=== PATIENT | female | born 1955 | race Caucasian/White ===

== ENCOUNTER 2018-09-01 14:17 | Inpatient (IN) ==
[2018-09-01] MEDS ORDERED: NS 1,000 ML IV ONE ×3 (15:02→19:20)
[2018-09-01] MEDS ORDERED: REGLAN IV ONE (15:22)
[2018-09-01] MEDS ORDERED: SODIUM CHLORIDE 0.9% INJ ONE ×2 (15:22→19:20)
[2018-09-01] MEDS ORDERED: PROTONIX IV ONE (15:22)
[2018-09-01 15:34] LABS: BASO# 0.03 X1000 (0.0-0.2); BASO% 0.4 % (0.0-0.8); EOS# 0.24 X1000 (0.0-0.7); EOS% 3.3 % (0.0-10.0); HEMATOCRIT 38.4 % (37.0-47.0); HEMOGLOBIN 12.4 g/dL (12.0-16.0); LYMPH# 2.35 X1000 (1.2-3.4); MCH 28.6 PG (27-31); MCHC 32.3 g/dL (33-37); MCV 88.5 FL (81-99); MONO# 0.72 X1000 (0.11-0.59); MONO% 9.8 % (1.7-9.3); MPV 10.1 FL (7.4-10.4); NEUT# 4.01 X1000 (1.4-6.5); NEUT% 54.5 % (42.2-75.2); PLT 223 X1000 (130-400); RBC 4.34 XMIL (4.2-5.4); RDW 13.5 % (11.5-14.5); WBC 7.35 X1000 (4.8-10.8)
[2018-09-01] MEDS ORDERED: NS 1,000 ML ONE (15:39)
[2018-09-01 15:43] LABS: ALB/GLOB RATIO 1.7; ALBUMIN 3.8 g/dL (3.5-5.0); CALCIUM 8.7 mg/dL (8.8-10.2); POTASSIUM 3.3 mmol/L (3.5-5.1); TOTAL BILIRUBIN 0.56 mg/dL (0.20-1.00); TOTAL PROTEIN 6.1 g/dL (6.3-8.3)
[2018-09-01 15:49] LABS: INR 0.92; PROTIME 13.1 Seconds (11.0-16.0)
[2018-09-01 15:50] LABS: PTT 26.6 Seconds (22.3-41.8)
--- NOTE | 2018-09-01 15:51 | EKG Report ---
Test Performed on : 09/01/2018 2:30:00 PM Test Reason : DIZZINESS Blood Pressure : / mmHG Vent. Rate : 104 BPM Atrial Rate : 104 BPM P-R Int : 146 ms QRS Dur : 100 ms QT Int : 358 ms P-R-T Axes : 041 019 010 degrees QTc Int : 470 ms Sinus tachycardia. Incomplete right bundle branch block ST & T wave abnormality, consider anterior ischemia Abnormal ECG No previous ECGs available Unconfirmed Result
--- NOTE | 2018-09-01 17:18 | PROVIDER DOCUMENTATION ---
This chart was entered by Allen Azar Scribe, acting as scribe for Marni Bonilla MD. HPI-Abdominal Pain/GI Problem - General Chief Complaint: GI Bleed Stated Complaint: dizziness, gi bleed Time Seen by Provider: 09/01/18 14:52 Allergies/Adverse Reactions: Patient Allergies Allergy/AdvReac Type Severity Reaction Status Date / Time Corticosteroids Allergy "MAKES ME Verified 09/01/18 14:56 (Glucocorticoids) RED AND HOT" Home Medications: Home Medication List Medication Instructions Recorded Confirmed Last Taken Type ATORVAstatin [Lipitor] 10 mg PO QHS 09/01/18 09/01/18 08/31/18 History Buprenorphine 1 patch TD DIRECTED 09/01/18 09/01/18 08/26/18 History Cyclobenzaprine [Flexeril] 10 mg PO BID 09/01/18 09/01/18 09/01/18 History Levothyroxine [Synthroid] 125 mcg PO DAILY 09/01/18 09/01/18 09/01/18 History Lisinopril/Hydrochlorothiazide 1 tab PO DAILY 09/01/18 09/01/18 09/01/18 History [Lisinopril-Hctz 20-12.5 mg Tab] Metformin HCl 500 mg PO BID 09/01/18 09/01/18 09/01/18 History Naldemedine Tosylate [Symproic] 1 tab PO DAILY 09/01/18 09/01/18 09/01/18 History Sertraline [Zoloft] 100 mg PO DAILY 09/01/18 09/01/18 09/01/18 History - History of Present Illness-ABD Nature of Presenting Problems: 62 yof presents with cc of GI Bleeding. Pt reports Saturday had a blood stools and the next BM was coffee grounds. Pt has had nausea, abd pain lower quads and vomiting. Denies blood in emesis. Reports today became dizzy and passed out. Pt is on a 20mg buprenorphine patch for pain for her back pain where she had back sx. Pt his hypotensive on exam BP was 85/55. Abdominal Pain Onset Location: reports: RLQ, LLQ Quality of Pain: reports: aching Severity in ED: reports: moderate Onset/Duration: reports: 2 days ago Timing: reports: still present Review of Systems - Adult - REVIEW OF SYSTEMS - ADULT Constitutional: denies: chills, fever, fatique Eyes: reports: no symptoms reported Ears, Nose, Mouth & Throat: denies: ear pain, sinus problem, throat pain Cardiovascular: reports: no symptoms reported Respiratory: denies: cough, shortness of breath, wheezing Gastrointestinal: reports: abdominal pain, nausea, rectal bleeding, vomiting. denies: hematemesis, constipation, difficulty swallowing, frequent heartburn Genitourinary: denies: dysuria, frequent UTI's, urgency Musculoskeletal: denies: bone pain, joint pain, neck pain Integumentary: denies: hives, mole changes, skin thickening Neurological: reports: dizziness/vertigo. denies: headache/migraines, numbness , paresthesia, seizure, slurred speech, tremors Psychiatric: reports: no symptoms reported Endocrine: reports: no symptoms reported Hematologic/Lymphatic: reports: no symptoms reported Allergic/Immunologic: reports: no symptoms reported All Other Systems: Reviewed and Negative Past History - Adult - PAST MEDICAL HISTORY-ADULT Review of Records: reports: Nursing Assessment Review, Medications Reviewed Major Childhood Illnesses: reports: denies history Cardiovascular: reports: HTN, hyperlipidemia Endocrine/Immune: reports: Diabetes - PRIOR SURGERIES/PROCEDURES Surgical/Procedure History: reports: appendectomy, cholecystectomy, hysterectomy , tonsillectomy, back/neck - IMMUNIZATION STATUS Childhood Immunizations: See Nurse Assessment Flu Vaccine: See Nurse Assessment - SOCIAL HISTORY Smoking: denies Substance Use: none/never Physical Exam-General - PHYSICAL EXAM-ADULT Initial Vital Signs Reviewed: Yes - CONSTITUTIONAL General Appearance: appears well, alert, no apparent distress - EYES Eyes: PERRL/EOMI - HEAD, EARS, NOSE, MOUTH & THROAT HENMT: moist mucous membranes - NECK Neck: non-tender, full range of motion, supple, normal inspection - RESPIRATORY Respiratory: chest non-tender, lungs clear, normal breath sounds, no pleuratic chest pain, no respiratory distress - CARDIOVASCULAR Cardiovascular: no edema, no gallop, no JVD, tachycardia - GASTROINTESTINAL (ABDOMEN) Abdominal Exam: soft, no organomegaly, no pulsatile mass, tenderness (mild ttp llq rlq) - GENITOURINARY Rectal Exam: blood streaked stool - MUSCULOSKELETAL Back Exam: normal inspection Extremity: normal range of motion, non-tender, normal gait - SKIN Integumentary: normal color, normal turgor, warm/dry - NEUROLOGIC Neurologic: grossly normal - PSYCHIATRIC Psych/Mental Status: normal mood/affect, normal thought content, normal thought process, oriented x 3 Progress - PLAN OF CARE/RESULTS Progress/Plan/Lab Results: Vital Signs - 8 hr 09/01/18 14:29 09/01/18 14:30 09/01/18 14:31 Temperature Pulse Rate 106 H 107 H 104 H Respiratory Rate 18 20 16 Blood Pressure 78/57 O2 Sat by Pulse Oximetry 96 94 L 94 L 09/01/18 14:32 09/01/18 14:38 09/01/18 14:40 Temperature 97 F L Pulse Rate 107 H 108 H 106 H Respiratory Rate 23 16 14 Blood Pressure 83/52 83/57 O2 Sat by Pulse Oximetry 93 L 99 97 09/01/18 14:41 Temperature Pulse Rate 106 H Respiratory Rate 17 Blood Pressure 85/55 O2 Sat by Pulse Oximetry 98 Laboratory Tests 09/01/18 09/01/18 09/01/18 14:30 14:30 14:30 WBC 7.35 RBC 4.34 Hgb 12.4 Hct 38.4 MCV 88.5 MCH 28.6 MCHC 32.3 L RDW Std Deviation 13.5 Plt Count 223 MPV 10.1 Immature Gran % (Auto) 0.0 Neut % (Auto) 54.5 Lymph % (Auto) 32.0 [place] % (Auto) 9.8 H Eos % (Auto) 3.3 Baso % (Auto) 0.4 Immature Gran # (Auto) 0.00 Neut # (Auto) 4.01 Lymph # (Auto) 2.35 [place] # (Auto) 0.72 H Eos # (Auto) 0.24 Baso # (Auto) 0.03 PT 13.1 INR 0.92 PTT (Actin FS) 26.6 Sodium 136 Potassium 3.3 L Chloride 99 Carbon Dioxide 25 Anion Gap 12 BUN 29 H Creatinine 1.0 H Estimated GFR/1.73 m2 56 BUN/Creatinine Ratio 29 Glucose 125 H Calculated Osmolality 279 Calcium 8.7 L Total Bilirubin 0.56 AST 27 ALT 33 Alkaline Phosphatase 56 Total Protein 6.1 L Albumin 3.8 Globulin 2.3 Albumin/Globulin Ratio 1.7 Blood Type Antibody Screen 09/01/18 14:30 WBC RBC Hgb Hct MCV MCH MCHC RDW Std Deviation Plt Count MPV Immature Gran % (Auto) Neut % (Auto) Lymph % (Auto) [place] % (Auto) Eos % (Auto) Baso % (Auto) Immature Gran # (Auto) Neut # (Auto) Lymph # (Auto) [place] # (Auto) Eos # (Auto) Baso # (Auto) PT INR PTT (Actin FS) Sodium Potassium Chloride Carbon Dioxide Anion Gap BUN Creatinine Estimated GFR/1.73 m2 BUN/Creatinine Ratio Glucose Calculated Osmolality Calcium Total Bilirubin AST ALT Alkaline Phosphatase Total Protein Albumin Globulin Albumin/Globulin Ratio Blood Type A POSITIVE Antibody Screen NEGATIVE Result Diagrams: 09/01/18 14:30 09/01/18 14:30 - CONSULTS/PCP/HOSPITALIST Notification #1 *Consult/PCP/Hospitalist*: Dr. Knapp Time Discussed: 16:39 Consult Disposition: Admit Departure - Departure Date of Disposition Decision: 09/01/18 Time of Disposition Decision: 16:25 DIAGNOSIS: GI bleed Disposition: ADMITTED INPATIENT 09 Certified Medical Emergency: Emergent Condition: Stable Referrals and Follow-Ups: Tae Kolb MD [Primary Care Provider] - - Critical Care Note This patient required my direct & personal management of CC.: No Attestation - Physician/ GREY Attestation Patient care was provided by Advanced Practice Provider:: No The physician spent face to face time with patient:: Yes Advanced Practice Provider documentation review:: Supervising physician onsite and consulted in the evaluation and care of this patient. The physician did have a face to face encounter with the patient. This chart was documented by the indicated scribe, (Allen Azar Scribe) and accurately reflects the services I performed and decisions made by me, Marni Bonilla MD, as attested by the provider's signature.
--- NOTE | 2018-09-01 18:16 | Diag Imaging Result Doc PS360 ---
EXAM: CT HEAD W/O CONTRAST HISTORY: dizziness with syncope per report CPR@home TECHNIQUE: CT head without contrast COMPARISON: None. FINDINGS: No parenchymal hemorrhage. No epidural or subdural hematoma. No subarachnoid hemorrhage. There are mild chronic microvascular ischemic changes. No mass identified on this noncontrasted exam. No hydrocephalus. No sinus opacification. IMPRESSION: No hemorrhage. This exam was performed using automated exposure control, adjustment of mA or kV according to patient size, and/or use of iterative reconstruction technique. Electronically signed by Renzo Bauer 09/01/2018 6:14 PM
--- NOTE | 2018-09-01 18:24 | Diag Imaging Result Doc PS360 ---
EXAM: CT THORAX/ABD/PELVIS W/O CON HISTORY: lower gi bleed vs diverticulitis r/o pna TECHNIQUE: 1. CT chest without contrast 2. CT abdomen and pelvis without contrast COMPARISON: No plain films obtained. FINDINGS: Chest: No pleural effusions. Trace pericardial fluid. Heart is borderline mildly enlarged. No thoracic aortic aneurysm. No enlarged lymph nodes. There are no infiltrates. No bronchiectasis. No lung mass identified. No pneumothorax. Abdomen and pelvis: Fatty infiltration of the liver. The gallbladder has been removed. No focal splenic normality. There is fatty infiltration of the pancreas. Normal adrenal glands. No renal stones. No hydronephrosis. Normal aorta. No bowel obstruction. No abscess. There is a Florez catheter in the urinary bladder. The uterus has been removed. No pelvic mass. IMPRESSION: Chest: Mildly prominent heart Abdomen and pelvis: 1. Fatty liver 2. Cholecystectomy 3. Hysterectomy This exam was performed using automated exposure control, adjustment of mA or kV according to patient size, and/or use of iterative reconstruction technique. Electronically signed by Renzo Bauer 09/01/2018 6:22 PM
--- NOTE | 2018-09-01 18:43 | HISTORY AND PHYSICAL ---
PRIMARY CARE PROVIDER: Dr. Tae Kolb CHIEF COMPLAINT: Bleeding from rectum and dizziness. HISTORY OF PRESENT ILLNESS: Ms. Tim is a 62-year-old female, who reports a past medical history of hypertension, hyperlipidemia, diabetes mellitus type 2, chronic back pain. She follows Dr. Joseph Bower with the [facility] in [place]. She reported Saturday she had an episode of blood dripping from her bottom that had to be cleaned out of the carpet, then a 2nd episode of what appeared to look like coffee grounds came from her bottom. Those were the only 2 episodes she had. She has been having dizziness since that time. No appetite. She reported she was at the kitchen table trying to eat her breakfast when her vision went blurry. She felt dizzy, went to go get O2 monitor and blood pressure cuff, and she had gotten up and tried to make her way to the bedroom. She fell at the doorway. He states her eyes rolled back in her head. She started gurgling. He did a few rounds of CPR. She then came to, felt nauseous, vomited up her toast. He had already called EMS. She still complains of some dizziness. On arrival to the ED, initial blood pressures were anywhere from 60s to 80s over 50s. She was given I believe 2 to 3 L of IV fluids. Apparently Dr. Bonilla did a rectal exam, and there was blood on the glove. We did not check any Hemoccult stool. Her hemoglobin and hematocrit are currently stable at 12 and 38. She was slightly hypokalemic with a mild kidney injury with a BUN of 29 and creatinine of 1.0. We will go ahead and insert a Florez catheter, place her in the ICU. We will do a CT scan of the head, chest, abdomen, and pelvis. Given her dizziness, CPR, and vomiting episode, as well as rule out any infections, we will keep her sipping on clear liquids. Continue proton pump inhibitor. Monitor her hemoglobin and hematocrit q.6 h. Notify Gastroenterology. PAST MEDICAL HISTORY: 1. Hypertension. 2. Hyperlipidemia. 3. Diabetes mellitus, type 2. 4. Chronic back pain. She follows the Pain [facility] in [place] at [facility] with Dr. Joseph Bower. PAST SURGICAL HISTORY: 1. Appendectomy. 2. Cholecystectomy. 3. Hysterectomy. 4. Tonsillectomy. 5. Back surgery 4 years ago for which she wears a pain patch. FAMILY HISTORY: Father with recent CVA. Mother with [place], who is . She also was diagnosed with bone cancer shortly before her [place]. A brother with diabetes or borderline diabetes. SOCIAL HISTORY: She lives in [place]. She is . She has supportive and brother at bedside. No alcohol, tobacco, or illicit drug use. ALLERGIES: Corticosteroids "makes her hot and red." HOME MEDICATIONS: 1. Lipitor 10 mg p.o. at bedtime. 2. Buprenorphine 1 patch TD as directed. 3. Flexeril 10 mg p.o. b.i.d. 4. Synthroid 125 mcg p.o. daily. 5. Lisinopril/hydrochlorothiazide 20/12.5 mg tablet 1 tablet p.o. daily. 6. Metformin 500 mg p.o. b.i.d. 7. Symproic 1 tablet p.o. daily. 8. Zoloft 100 mg p.o. daily. PHYSICAL EXAMINATION: VITAL SIGNS: Temperature is 97 degrees, heart rate 91, respirations 16, blood pressure 109/73, O2 is 100% on room air. GENERAL: Ms. Tmi is a pleasant 62-year-old female, who is lying on the stretcher in no acute distress. HEENT: Atraumatic, normocephalic. YUNIER. NECK: Supple. Trachea midline. CARDIOVASCULAR: S1, S2 appreciated. No murmurs, gallops, or rubs noted. RESPIRATORY: Lung sounds clear to excursion. Nonlabored breathing. GASTROINTESTINAL: Soft, nontender, nondistended. Positive bowel sounds 4 quadrants. EXTREMITIES: Bilateral lower extremities negative for edema. Bilateral pedal pulses are palpable. No clubbing. SKIN: No cyanosis noted. NEUROLOGIC: Patient is alert and oriented x4. Follows commands. Moves all extremities. DIAGNOSTIC DATA: EKG shows sinus tachycardia with incomplete right bundle branch block. CBC: White count 7, hemoglobin 12, hematocrit 38, platelet count is 223,000. PT 13.1, INR 0.92. Chemistry: Sodium 136, potassium 3.3, BUN 29, creatinine 1.0, blood glucose 125. Currently pending CK profile. Pending head, chest, abdomen and pelvis CT. ASSESSMENT AND PLAN: 1. Probable lower gastrointestinal (GI) bleed. Per patient report, she has had 2 episodes of bloody diarrhea on Saturday, and per family report in the room, she was checked by the ED physician. On rectal exam, there was blood on his glove; however, we did not get that in report. We will go ahead and check an occult stool. We will keep her sipping on clear liquids. Monitor her in the ICU. Serial hemoglobin and hematocrit. Continue with PPI. She has been typed and screened if needed transfusion. 2. Syncope, possibly secondary to lower gastrointestinal (GI) bleed and/or pain medications. We will hold any pain medications for now. See #1. The patient is now normotensive. We will monitor in the ICU closely for the possibility of receiving blood products or needing to go on pressors, as well as check orthostatics. We will check an echocardiogram. 3. Diabetes mellitus, type 2. We will continue with patterned blood sugars and sliding scale insulin. 4. Hypertension. The patient has been hypotensive. We will hold any blood pressure medications. 5. Hyperlipidemia. 6. Back pain. Patient is followed by the [facility] with Dr. Joseph Bower. Again we will hold any pain medications that might lower her blood pressure. Further recommendation to follow physician evaluation, laboratory data, and diagnostic data. Dictated by MARY Shannon for Lam Knapp MD cc: Lam Knapp MD MTD
[2018-09-01] MEDS ORDERED: ZOFRAN IV PRN (19:20)
[2018-09-01] MEDS ORDERED: POTASSIUM CHLORIDE 20 MEQ/SWI 20 MEQ/100 ML IVPB IV ONE (19:20)
[2018-09-01] MEDS: HUMALOG SUBQ SCH (21:00)
[2018-09-01 22:01] LABS: HEMOGLOBIN 10.6 g/dL (12.0-16.0)
[2018-09-01] MEDS: LIPITOR PO SCH (22:30)
--- NOTE | 2018-09-01 23:26 | HISTORY AND PHYSICAL ---
HISTORY OF PRESENT ILLNESS: Briefly, Ms. Tim refers that since Saturday, she was having abdominal cramps, and then subsequently, the following day, she had a massive bowel movement which was dark red. The 2nd episode was coffee ground, according to the at any case, she said she felt kind of weak throughout the weekend, but Saturday she was fairly stable. This morning, she was playing on her iPad, and she felt dizzy. She tried to get up to go to her room to lay down, and that is when she just passed out and the had to grab her before she hit the floor. She said she did not really know much what happened, but she recovered her mentation immediately. According to the , it took maybe about 40 seconds, but when she got her back, her blood pressure was about 40/30, and he could not get any pulse. Of note, Ms. Tim is on a lot of home opioid medications, including buprenorphine, cyclobenzaprine, sertraline, and also on lisinopril with HCTZ. Upon presenting to the emergency department, the patient was evaluated. She had a blood pressure of 78/57, and multiple charting revealed blood pressure of 69/59. The patient has been given about 2 L of IV fluids. PHYSICAL EXAMINATION: GENERAL: Currently, on her physical exam, she looks dry, but she is alert and oriented. There is no neurological deficit. ABDOMEN: Soft, nontender. Bowel sounds were present. EXTREMITIES: No pedal edema. CHEST: Clear to auscultation. CARDIOVASCULAR: Slightly tachycardic, but no murmurs, no rubs, no gallops. LABORATORY STUDIES: I reviewed her lab wok as well. Hemoglobin and hematocrit is 12.4, but this is the first reading. We do not have any other labs on her previously. ASSESSMENT: 1. Suspected gastrointestinal bleed. We will start the patient on a proton pump inhibitor drip, and have GI to evaluate her in the morning. 2. Syncope, likely a combination of volume depletion, as well as drug-induced. The patient's pain patch has been removed. We have also withheld her blood pressure medications. We will hydrate her accordingly. 3. Clinical volume depletion. Will continue with IV fluids. Blood pressure has been fairly normalized. 4. Hypothyroidism. Will continue with the thyroid medications. 5. Diabetes mellitus. We will continue with medication. 6. Renal failure, presumably acute, due to volume depletion. We will continue with adequate IV fluids, and repeat the labs for tomorrow. PLAN: 1. In general, I think Ms. Tim seems to be getting better. We will, however, keep her in the ICU and trend her hemoglobin and hematocrit, group and crossmatch her, and transfuse if necessary. We are going to withhold her blood pressure medication, and her buprenorphine has also been discontinued. 2. We will re-evaluate her in the morning, and continue with her PPI. Instead of drip, we will do 40 b.i.d. 3. Please refer to the details of the history and physical in the chart done by Ms. Maricarmen Mendoza NP. cc: Lam Knapp MD
[2018-09-02 01:31] LABS: HEMATOCRIT 32.9 % (37.0-47.0); HEMOGLOBIN 10.5 g/dL (12.0-16.0)
[2018-09-02] MEDS: SYNTHROID PO SCH (06:21)
[2018-09-02] MEDS: PROTONIX IV SCH ×2 (06:21→19:05)
--- NOTE | 2018-09-02 06:33 | Diag Imaging Result Doc PS360 ---
EXAM: CHEST-PORTABLE HISTORY: follow up TECHNIQUE: Portable chest single view COMPARISON: None. FINDINGS: Poor inspiratory effort. The heart is borderline mildly prominent. The vessels are not distended. There are no infiltrates. No effusion identified. IMPRESSION: Borderline mildly prominent heart. Electronically signed by Renzo Bauer 09/02/2018 6:30 AM
[2018-09-02 06:59] LABS: BASO# 0.02 X1000 (0.0-0.2); BASO% 0.4 % (0.0-0.8); EOS# 0.16 X1000 (0.0-0.7); EOS% 3.5 % (0.0-10.0); HEMATOCRIT 34.6 % (37.0-47.0); HEMOGLOBIN 11.1 g/dL (12.0-16.0); LYMPH# 1.51 X1000 (1.2-3.4); LYMPH% 32.6 % (20.5-51.1); MCH 28.8 PG (27-31); MCHC 32.1 g/dL (33-37); MCV 89.6 FL (81-99); MONO# 0.51 X1000 (0.11-0.59); MPV 9.6 FL (7.4-10.4); NEUT# 2.43 X1000 (1.4-6.5); NEUT% 52.5 % (42.2-75.2); PLT 178 X1000 (130-400); RBC 3.86 XMIL (4.2-5.4); RDW 13.3 % (11.5-14.5); WBC 4.63 X1000 (4.8-10.8)
[2018-09-02] MEDS: HUMALOG SUBQ SCH ×4 (06:59→23:39)
[2018-09-02 07:18] LABS: AGAP 10; BUN 19 mg/dL (8-22); CALCIUM 8.4 mg/dL (8.8-10.2); CHLORIDE 107 mmol/L (98-107); COSMO 283; CREATININE 0.7 mg/dL (0.5-0.9); ESTIMATED GFR > 60; GLUCOSE 86 mg/dL (70-104); MAGNESIUM 1.9 mg/dL (1.5-2.7); POTASSIUM 3.6 mmol/L (3.5-5.1); SODIUM 141 mmol/L (136-145); TCO2 24 mmol/L (25-35)
[2018-09-02 09:20] LABS: URINE SOURCE CATH
[2018-09-02 09:23] LABS: BILIRUBIN URINE NEGATIVE (NEGATIVE); BLOOD URINE SMALL (NEGATIVE); COLOR YELLOW; GLUCOSE URINE NEGATIVE (NEGATIVE); KETONE URINE 20 mg/dL (NEGATIVE); LEUKOCYTES URINE NEGATIVE (NEGATIVE); NITRITE URINE NEGATIVE (NEGATIVE); PH URINE 5.5; PROTEIN URINE NEGATIVE (NEGATIVE); SP GRAVITY URINE 1.009; TURBIDITY URINE CLEAR (CLEAR); UROBILINOGEN URINE NORMAL (NORMAL)
[2018-09-02 09:24] LABS: UR EPITHELIAL CELLS <10 /HPF (<10); URINE BACTERIA NEGATIVE /HPF; URINE RBC <10 /HPF (<10); URINE WBC <10 /HPF (<10)
[2018-09-02] MEDS ORDERED: NS 1,000 ML IV SCH (10:15)
--- NOTE | 2018-09-02 10:33 | PROGRESS NOTE ---
DATE: 09/02/2018 SUBJECTIVE: This morning Ms. Tim refers to be doing a lot better, has not had any more melena stools, and does not feel any more dizzy. Has not had any syncopal episode. OBJECTIVE: Vital signs: Blood pressure is 134/95, pulse is 91, respiration is 18, temperature 97.8 degrees. General exam: Ms. Tim is a 62-year-old, female. She is in bed. She is not in any cardiopulmonary distress. HEENT: Mucosa is pink and moist. Anicteric. Acyanotic. Neck: Supple. Chest: Clear to auscultation. There was no crepitations, no rhonchi. Cardiovascular: Regular rate and rhythm. No murmurs, no rubs, no gallops. Abdomen: Soft. Minimally tender, especially to the lower abdomen. Extremities: No pedal edema. There was a Florez catheter in place. DRIVER LICENSE REVIEWING OFFICER: Patient is awake, alert, oriented. There is no focal neurological deficit. LABORATORY DATA: WBC is down to 4.63, hemoglobin is 11.1, platelet count of 178. Chemistry is also reviewed. Creatinine has normalized to 0.7. BUN is also down to 19. TSH is normal. PATIENT MEDICATIONS: Have all been reviewed. ASSESSMENT: 1. Suspected gastrointestinal bleed. Hemoglobin and hematocrit is fairly stable. The patient has not been transfused. We will continue with the proton pump inhibitor. She has been evaluated by Gastroenterology and there is a plan for endoscopies tomorrow. 2. Syncope on presentation likely a combination of volume depletion and drug induced. Patient's Buprenorphine patch has been discontinued. We will continue with adequate hydration. 3. Clinical volume depletion, improved. 4. Hypothyroidism. Patient is on levothyroxine. 5. Diabetes mellitus, controlled. 6. Acute kidney injury, resolved. PLAN: So, in general, I think Ms. Tim is doing a lot better. We are going to discontinue the Florez catheter, transfer her from the ICU to regular medical floor, encourage her to sit up. We will get physical therapy also to work with her. I understand she is going to get endoscopies tomorrow. Will follow up with further recommendations from GI. cc: Lam Knapp MD [facility] CENTERFariba
[2018-09-02] MEDS ORDERED: SODIUM CHLORIDE 0.9% 10 ML ONE (14:15)
--- NOTE | 2018-09-02 14:48 | GASTROENTEROLOGY CONSULTATION ---
DATE: 09/02/2018 REASON FOR CONSULTATION: Hematochezia. HISTORY OF PRESENT ILLNESS: Ms. Ozzie Tim is a 62-year-old woman with a past medical history of hypertension, hyperlipidemia, noninsulin dependent diabetes, osteoarthritis, chronic back pain, hypothyroidism, and depression, who presents with syncopal event that occurred yesterday while at home. She says that about 3 days ago, she developed the sudden urge to defecate and had a dark red bowel movement with clots. Subsequently the next day, she was noted to have coffee-ground stools. She denies any associated hematemesis. She did have one episode of nausea and vomiting after her syncopal event yesterday. She does complain of having some cramping abdominal pain and bloating that occurred with her rectal bleeding. No prior history of similar symptoms. She is not on any NSAIDs or aspirin. She does report having an EGD and colonoscopy about 5 years ago that was unremarkable. She denies any family history of colon cancer. PAST MEDICAL HISTORY: As per HPI. PAST SURGICAL HISTORY: Appendectomy, cholecystectomy, hysterectomy, tonsillectomy and back surgery. MEDICATIONS: Lipitor, buprenorphine patch, Flexeril, Synthroid, lisinopril/ hydrochlorothiazide combination, metformin, Symproic, Zoloft. She takes Aleve once a week for back pain. FAMILY HISTORY: No known GI malignancies. SOCIAL HISTORY: No smoking, alcohol or drug use. ALLERGIES: Steroids make her hot and flushed in the face. REVIEW OF SYSTEMS: As per HPI. A 12-point review of systems is otherwise negative. PHYSICAL EXAMINATION: On presentation, she is found to have orthostatic vital signs that were positive. Currently temperature 97.8, heart rate 85, respiratory rate 20, blood pressure 134/72, O2 saturation 100% on room air. General: The patient is awake, alert and oriented, in no acute distress. HEENT: Sclerae anicteric. Moist mucous membranes. Neck: No JVD. No lymphadenopathy. Pulmonary: Clear to auscultation bilaterally. No wheezing, rales or rhonchi. Cardiac: Regular rate and rhythm. No murmurs. Abdomen: Soft, nontender and nondistended. Normoactive bowel sounds. No rebound or guarding. No ascites. Extremities: No cyanosis, clubbing or edema. Skin: Warm and well perfused. No jaundice. Neurologic: Nonfocal. Moving all extremities symmetrically. DIAGNOSTIC DATA: Sodium is 134, potassium 3.6, chloride 107, bicarb 24, BUN is 19, creatinine 0.7. White count is 4.6, hemoglobin 10.5, platelets 178,000. Albumin 3.8, total protein 6.1, total bilirubin 0.56, AST of 27, ALT of 23, alkaline phosphatase 56. INR is 0.92. UA showed ketones. CT of the chest, abdomen and pelvis showed fatty liver and postsurgical findings. Chest x-ray and head CT revealed no acute findings. The patient was admitted to the ICU for lower GI bleeding and associated hypotension. ASSESSMENT AND PLAN: Ms. Ozzie Tim is a 62-year-old woman with multiple medical problems as outlined above, who presents with syncopal event in the setting of recent episode of hematochezia. She takes NSAIDs rarely. Her hemoglobin dropped from 12.4 on admission to 10.5 , currently with fluid resuscitation. She does describe having some cramping abdominal pain with dark red stools as well as coffee-grounds. The differential includes upper GI as well as lower GI bleeding. She is currently on IV PPI twice daily. Her blood pressure medications have been held. Our plan will be to prep her for a colonoscopy as well as an EGD tomorrow given inability to localize bleeding based off of history and labs. Continue to trend hemoglobin and hematocrit every 6 to 8 hours, transfuse as needed to maintain hemoglobin of 7 to 8. Continue fluid resuscitation. Maintain 2 large bore IVs, holding blood thinners. Recommend DVT prophylaxis with TEDs or SCDs. We will follow with you. Please call with any questions or concerns. #Hematochezia/coffee ground stools: EGD/colonoscopy tomorrow, on PPI #Hypotension: resolved with fluid resuscitation; suspect iatrogenic from medication-effect since no significant; holding BP meds, recommend reevaluation of pain meds Will follow with you. Please call with questions. [facility]
[2018-09-02] MEDS ORDERED: PROTONIX IV SCH (16:00)
[2018-09-02] MEDS ORDERED: GOLYTELY PO ONE (18:00)
--- NOTE | 2018-09-02 18:25 | ECHO REPORT ---
ORDER DATE: 09/01/2018 INDICATION: Syncope, abdominal cramps, and diabetes. M-MODE MEASUREMENTS: Left ventricle end diastole: 4.4. Left ventricle end systole: 2.7. Posterior wall: 1.0. Interventricular septum: 1.2. Left atrium: 3.5. SUMMARY OF 2-DIMENSIONAL IMAGING: The study is difficult. The patient is obese. 1. Left ventricular systolic function appears to be normal. Estimated ejection fraction of 76%. 2. The aortic valve looks normal. Color flow mapping unremarkable. 3. The mitral valve shows a mild degree of regurgitation. 4. Pulsed wave Doppler of mitral inflow shows reversal of the E and the A ratio. Ratio is 0.7. 5. Tissue Doppler of septal and lateral mitral annulus averages 9 cm. There is no diastolic dysfunction. 6. Inferior vena cava was not visualized. 7. The pulmonary pressure is estimated at 35 to 40 mmHg. Pulmonic valve looks normal. Color flow mapping unremarkable. Pulmonary venous flow is normal. 8. There is no definite enlargement of the right ventricle. 9. There is epicardial fat pad with physiologic amount of pericardial fluid. Clinical correlation is recommended. cc: Ramone Krishnamurthy MD
[2018-09-02] MEDS: LIPITOR PO SCH (21:20)
[2018-09-03 06:31] LABS: BASO# 0.02 X1000 (0.0-0.2); BASO% 0.4 % (0.0-0.8); EOS# 0.17 X1000 (0.0-0.7); EOS% 3.6 % (0.0-10.0); HEMATOCRIT 35.4 % (37.0-47.0); HEMOGLOBIN 11.6 g/dL (12.0-16.0); IMM GRAN# 0.02 X1000 (0.0-0.04); IMM GRAN% 0.4 % (0.0-0.5); LYMPH# 1.43 X1000 (1.2-3.4); LYMPH% 29.9 % (20.5-51.1); MCH 28.6 PG (27-31); MCHC 32.8 g/dL (33-37); MCV 87.4 FL (81-99); MONO# 0.61 X1000 (0.11-0.59); MONO% 12.8 % (1.7-9.3); MPV 9.7 FL (7.4-10.4); NEUT# 2.53 X1000 (1.4-6.5); NEUT% 52.9 % (42.2-75.2); PLT 250 X1000 (130-400); RBC 4.05 XMIL (4.2-5.4); WBC 4.78 X1000 (4.8-10.8)
[2018-09-03 06:32] LABS: AGAP 12; BUN 9 mg/dL (8-22); CALCIUM 8.7 mg/dL (8.8-10.2); CHLORIDE 100 mmol/L (98-107); COSMO 276; CREATININE 0.7 mg/dL (0.5-0.9); ESTIMATED GFR > 60; GLUCOSE 97 mg/dL (70-104); POTASSIUM 3.9 mmol/L (3.5-5.1); SODIUM 139 mmol/L (136-145); TCO2 27 mmol/L (25-35)
[2018-09-03] MEDS: PROTONIX IV SCH (06:41)
[2018-09-03] MEDS: SYNTHROID PO SCH (06:41)
[2018-09-03] MEDS ORDERED: XYLOCAINE-MPF 2% ONE (07:23)
[2018-09-03] MEDS ORDERED: DIPRIVAN 1% ONE ×4 (07:23→08:29)
[2018-09-03] MEDS ORDERED: ROBINUL ONE (07:23)
--- NOTE | 2018-09-03 09:52 | OPERATIVE NOTE ---
PROCEDURE DATE : 09/03/2018 EXAM: Upper GI endoscopy and colonoscopy. PROVIDER: Jose G Toure M.D. INDICATIONS: Hematochezia, coffee ground stools, hypotension. MEDICATIONS: Monitored anesthesia care. PROCEDURE: Prior to procedure, a history and physical was performed and patient' s medications, allergies were reviewed. The patient's tolerance of previous anesthesia was also reviewed. The risks and benefits of the procedure and the sedation options and risks were discussed with the patient. All questions were answered and informed consent was obtained. After reviewing the risks and benefits, the patient was deemed in satisfactory condition to undergo the procedure. The endoscope was passed under direct visualization. Throughout the procedure, the patient's blood pressure, pulse and oxygen saturations were monitored continuously. The endoscope was introduced through the mouth and passed to the second portion of the duodenum. The upper GI endoscopy was accomplished without difficulty. The colonoscope was then introduced through the anus and advanced to the terminal ileum identified by the appendiceal orifice and ileocecal valve. The colonoscopy was accomplished without difficulty. The quality of the prep was adequate. The patient tolerated colonoscopy well. COMPLICATIONS: No immediate complications. ESTIMATED BLOOD LOSS: Minimal. EGD FINDINGS: - Normal esophagus. - There were a few scattered erosions and mild erythema suggestive of a gastritis in the antrum. Random gastric biopsies were obtained to rule out H. pylori. - The duodenal bulb and second portion were normal. - Retroflexion in the stomach was normal. COLONOSCOPY FINDINGS: - There were some mild patchy erythema and aphthous ulcers in the sigmoid colon without active bleeding. Random biopsies were obtained to evaluate for ischemic colitis versus Crohn's disease. - The terminal ileum was normal. - There were some small internal hemorrhoids found in the rectum. - The cecum, ascending, transverse and descending colons were normal as well as the rectum. IMPRESSION: 1. Gastritis erosions. 2. Gastritis. 3. Sigmoid colitis suspicious for ischemic colitis. RECOMMENDATIONS: - Await pathology results - Transition IV PPI to p.o. b.i.d. daily and continue for 3 months. - Avoid aspirin and NSAIDs. - Resume diet. - The findings were discussed with patient's family. Recommend outpatient followup in 2-4 weeks to review pathology and discuss findings and further management. Patient is okay from a GI perspective to be discharged. Please call with any questions or concerns. [facility]
[2018-09-03 10:42] VITALS: BP 112/63
[2018-09-03] MEDS: HUMALOG SUBQ SCH (13:47)
[2018-09-03] MEDS ORDERED: PROTONIX PO SCH (21:00)
--- NOTE | 2018-09-03 21:28 | DISCHARGE SUMMARY ---
ADMISSION DATE: 09/01/2018 DISCHARGE DATE: 09/03/2018 DISPOSITION: Home. FOLLOWUP: 1. Dr. Tae Kolb. 2. Dr. Blake. CONSULTATION DURING THIS ADMISSION: GI was consulted. The patient was seen by Dr. Toure. INVASIVE PROCEDURES DONE DURING THIS ADMISSION: Both esophagogastroduodenoscopy and colonoscopy were done. Please refer to the details of the findings in the chart. Briefly, EGD was unremarkable except for some mild gastritis and gastric erosions, and the colonoscopy revealed sigmoid colitis suspicious for ischemic colitis. DIAGNOSES AT THE TIME OF ADMISSION: 1. Lower gastrointestinal bleed. 2. Syncope. 3. Diabetes mellitus. 4. Hypertension. 5. Pain. DIAGNOSES AT THE TIME OF DISCHARGE: 1. Suspected gastrointestinal bleed, likely due to ischemic colitis. 2. Syncope on presentation due to combination of volume depletion and drug induced. 3. Hypotension due to drug induced. 4. Diabetes mellitus, controlled. 5. Acute kidney injury, resolved. 6. Clinical volume depletion, improved. DISCHARGE MEDICATIONS: 1. Levothyroxine 125 p.o. daily. 2. Metformin 500 b.i.d. 3. Atorvastatin 10 mg at bedtime. 4. Flexeril 10 mg b.i.d. 5. Zoloft 100 mg daily. 6. Pantoprazole 40 mg p.o. q.12 daily. PRESENTING COMPLAINT: Bleeding from rectum and dizziness. HISTORY OF PRESENTING COMPLAINT: Ms. Tim is a 62-year-old female who is known to have chronic pain issues. She goes to [facility], currently on buprenorphine patch as well as other medications. Came to the emergency department because she has been feeling remarkably weak. She had multiple episodes of tarry black stool and syncopized on the day of admission. Upon presentation, the patient was evaluated, was found to be hypotensive at some point. There was a documented blood pressure of 69/59. The patient was initially admitted to the ICU for medical care. HOSPITAL COURSE: Ms. Tim was initially admitted to the ICU, adequately hydrated. Hemoglobin and hematocrit were trended and did remain fairly stable, so she did not need any blood transfusion. GI was consulted, and the patient was seen by Dr. Toure. Ms. Tim' buprenorphine patch was removed. Since then, her blood pressures have been fairly stabilized. She did not need any pressor. She was transferred subsequently from the ICU to regular floor. GI did both upper and lower endoscopies. Please refer to the details of the report in the chart. Today, Ms. Tim referred to be doing a lot better. Denies any more dizziness. Has not had any more syncopal episode. She has been getting around to the bathroom, and she does not feel any dizzy. Per GI, the patient is okay from their standpoint to be discharged. Today, her lab work has all been reviewed. Hemoglobin is 11.6. Other lab works are all normal. At the time of the discharge, her blood pressure is 112/63, pulse is 82, respiration is 18, temperature is 97.6 degrees. Physical exam is unremarkable. Ms. Tim is therefore clinically stable for discharge. She is going to follow up with her primary care doctor, Dr. Kolb, and Dr. Blake. Of most interest is that we addressed her pain medication needs, and we did recommend that she follow up with her primary care doctor before she goes back on the buprenorphine. All the discharge instructions were discussed with her. was at the bedside at the time of the encounter. TIME SPENT: Time spent for discharge is 36 minutes. cc: MD Tae Miller MD Manish Arora, MD
== END 2018-09-03 14:13 | disposition home or self-care (01) | DRG 394 ==
LOC: SUPCPDRO → ED 14:17 → EDIPHOLD 21:31 → ICU 22:42 → 4N 09-02 13:37
PROVIDERS: ATTEND Internal Medicine
CPT/HCPCS: 51702; 70450; 71010; 71045; 71250; 74176; 80048; 80053; 81001; 82270; 82948; 83735; 84443; 85014; 85018; 85025; 85610; 85730; 86850; 86900; 86901; 88305; 88312; 88313; 93005; 93306; 94761; 94799; 96361; 96365; 96366; 96375; 99285; A9270; C9113; J2765; J3480; J7030; S0164; XXXXX